=== PATIENT | male | born 1985 | race Caucasian/White ===

== ENCOUNTER 2019-11-16 20:46 | Emergency (ER) | payer BC ==
[2019-11-16 20:53] VITALS: RESP 18
[2019-11-16] MEDS ORDERED: SODIUM CHLORIDE 0.9% 1,000 ML IV STA (22:12)
[2019-11-16 22:30] VITALS: TEMP 98.9
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
[2019-11-16 22:43] LABS: Basophils % (A) 1 %; Eosinophils # (A) 0.2 k/uL (0-0.7); Eosinophils % (A) 3 %; HCT 45.6 % (39.0-53.0); HGB 15.3 gm/dL (13.0-17.5); Lymphocytes # (A) 2.8 k/uL (1.0-4.8); Lymphocytes % (A) 38 %; MCH 31.2 pg (25.0-35.0); MCHC 33.7 g/dL (31.0-37.0); MCV 92.8 fL (80.0-100.0); Mean Platelet Volume 8.1; Monocytes # (A) 0.6 k/uL (0-1.0); Monocytes % (A) 8 %; Neutrophils # (A) 3.5 k/uL (1.3-7.7); Neutrophils % (A) 48 %; Platelet Count 207 k/uL (150-450); RBC 4.91 m/uL (4.30-5.90); RDW 12.8 % (11.5-15.5); WBC 7.4 k/uL (3.8-10.6)
--- NOTE | 2019-11-16 22:57 | XR ---
EXAMINATION TYPE: XR chest 2V DATE OF EXAM: 11/16/2019 COMPARISON: NONE HISTORY: Syncope TECHNIQUE: 2 views FINDINGS: Heart is normal. Lungs are clear. Diaphragm is normal. Bony thorax appears normal. There ar e chest leads. IMPRESSION: Normal chest. Normal heart.
[2019-11-16 22:58] LABS: Partial Thromboplastin Time 22.3 sec (22.0-30.0); Prothrombin Time 10.1 sec (9.0-12.0)
[2019-11-16 23:03] LABS: ALT 23 U/L (4-49); AST 30 U/L (17-59); African American GFR (CKD) >90 (>60 ml/min/1.73 sqM); Albumin 4.5 g/dL (3.5-5.0); Alcohol 43 mg/dL; Alkaline Phosphatase 78 U/L (38-126); Anion Gap 14 mmol/L; Blood Urea Nitrogen 19 mg/dL (9-20); Calcium 8.9 mg/dL (8.4-10.2); Carbon Dioxide 21 mmol/L (22-30); Chloride 103 mmol/L (98-107); Creatine Kinase 133 U/L (55-170); Glucose 85 mg/dL (74-99); Non-African American GFR(CKD) 85 (>60 ml/min/1.73 sqM); Sodium 138 mmol/L (137-145); Total Bilirubin 1.1 mg/dL (0.2-1.3); Total Protein 6.9 g/dL (6.3-8.2)
[2019-11-17 06:40] VITALS: BP 123/72; PULSE 66
== END 2019-11-17 00:05 | disposition home or self-care (01) ==
LOC: EC 20:46
DX: R55 Syncope and collapse (principal); R53.83 Other fatigue
CPT/HCPCS: 36415; 71046; 80053; 80320; 82550; 84484; 85025; 85610; 85730; 93005; 96360; 99284